=== PATIENT | male | born 2000 | race Caucasian/White ===

== ENCOUNTER 2021-02-18 14:50 | Emergency (ER) | payer OTHER ==
[2021-02-18 16:09] LABS: HEMOGLOBIN 15.9 gm/dl (14.0-17.5); RED BLOOD COUNT 5.29 M/UL (4.20-5.50); WHITE BLOOD COUNT 9.9 K/UL (4.5-11.0)
[2021-02-18 16:39] LABS: BUN/CREATININE RATIO 10 (0-10)
[2021-02-18] MEDS ORDERED: K-TAB ER20 MEQ PO (17:26)
== END 2021-02-18 17:39 | disposition home or self-care (01) ==
LOC: ER1 14:50
PROVIDERS: Emergency Medicine
DX: F41.0 Panic disorder [episodic paroxysmal anxiety] (principal); R07.89 Other chest pain; Z88.2 Allergy status to sulfonamides
CPT/HCPCS: 71045; 80053; 80307; 82550; 82553; 83874; 83880; 84439; 84443; 84484; 85025; 85379; 93005; 99285; J2060; J7030